=== PATIENT | male | born 1955 | race Caucasian/White ===

== ENCOUNTER → 2017-02-24 | Outpatient (CLI) | payer OTHER ==
--- NOTE | 2017-02-24 17:29 | MRI ---
EXAM DESCRIPTION: Lumbar Spine w/o Contrast CLINICAL HISTORY: RIGHT SIDE SCIATICA, pain down the right leg and numbness in the right toes COMPARISON: None Available. TECHNIQUE: Multiplanar images of the lumbar spine were submitted without the administration of contrast FINDINGS: There is straightening of the normal lumbar lordosis. There is mild retrolisthesis of L4 on L5 and L5 on S1. There is loss of signal in lumbar disc interspaces at L3-4 L4-5 and L5-S1 consistent with disc desiccation. Marrow signal appears within normal limits without evidence of geographic marrow lesion or marrow edema. No acute fracture. Conus appears unremarkable and ends at the level of T12-L1. 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 Reactive endplate changes are present at L5-S1. T12-L1: Unremarkable. L1-L2: Mild facet arthropathy without central canal or neural foraminal narrowing. L2-L3: Generalized bulging of the disc and facet arthropathy. There is mild impingement on the neural foramina and some flattening of the anterior aspect of the thecal sac. L3-L4: Moderate generalized bulging of the disc and facet arthropathy. There is moderate right neural foraminal stenosis and severe left neural foraminal narrowing with mild narrowing of the central canal. L4-L5: Marked generalized bulging of the disc and moderate facet arthropathy. There is small area of abnormal signal suggesting a right perimedian disc. There is severe narrowing of the right aspect of the thecal sac, right lateral recess and severe bilateral neural foraminal stenosis. The central canal is measured to less than 6 mm. L5-S1: There is generalized bulging of the disc with a broad-based right lateral disc bulge and probable lateral annular tear on the right. There is moderate facet arthropathy. There is severe right and moderate left neural foraminal stenosis. There is impingement on the right L5 nerve root and possibly minimal impingement on the S1 nerve root. No additional imaging through the sacrum was provided. 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 There is severe narrowing of the central canal with obliteration of the right aspect of the thecal sac and lateral recess with severe bilateral neural foraminal stenosis Severe right neural foraminal stenosis at L5-S1 and moderate left. There is impingement on the L5 nerve root on the right and minimal impingement may be present on the S1 nerve root Additional changes as above Electronically signed by: Julissa Valdivia 02/24/2017 5:28 PM [facility]
== END ==
LOC: MRI 10:42
PROVIDERS: ATTEND General Practice
DX: M51.16 Intervertebral disc disorders with radiculopathy, lumbar region (principal)